=== PATIENT | female | born 1970 | race African-American/Black ===

== ENCOUNTER 2018-02-28 15:01 | Emergency (ER) | payer BC ==
[~2018-02-28] VITALS: Ht 160 cm; Wt 83.0 kg
[2018-02-28 15:21] VITALS: BP 187/88; PULSE 99; RESP 22; TEMP 99.2; O2SAT 99
[2018-02-28] MEDS ORDERED: MONT10TA2 PO (15:37)
[2018-02-28] MEDS ORDERED: LISI-515 PO (15:37)
--- NOTE | 2018-02-28 15:56 | PD ---
HPI Chief Complaint: Abdominal Pain Time Seen by Provider: 15:28 Travel History International Travel<30 days: No Contact w/Intl Traveler<30days: No Traveled to known affect area: No History of Present Illness HPI Patient 47-year-old female presents emergency department with intermittent epigastric pain over the past days. States feeling kind of cramping and just like something is moving inside of her abdomen. States she was speaking with some of her coworkers and they told her she should come in and be seen. She has a history of partial hysterectomy but is concerned that maybe she was having a gallbladder flare. She cannot elicit factors. Denies any chest pain shortness of breath. She states her symptoms are fairly mild currently. No vaginal bleeding vaginal discharge dysuria vomiting constipation diarrhea blood in stool PFSH Past Medical History Medical History: Denies Significant Hx Asthma: Yes Diminished Hearing: No Hypertension: Yes ?: Not Past Surgical History Section: Yes (X1) Hysterectomy: Yes (PARTIAL) Social History Alcohol Use: No Tobacco Use: No Allergies-Medications (Allergen,Severity, Reaction): Coded Allergies: Penicillins (Verified Allergy, Intermediate, ITCHING, 02/28/18) Reported Meds & Prescriptions Reported Meds & Active Scripts Active Pepcid (Famotidine) 20 Mg Tab 20 Mg PO BID Bentyl (Dicyclomine HCl) 10 Mg Cap 10 Mg PO TID PRN 20 Days Reported Lisinopril 20 Mg Tab 20 Mg PO DAILY Singulair (Montelukast Sodium) 10 Mg Tab 10 Mg PO HS Review of Systems Except as stated in HPI: all other systems reviewed are Neg Physical Exam Narrative GENERAL: Well-developed well-nourished -[place] overweight female in no obvious distress. SKIN: Focused skin assessment warm/dry. HEAD: Atraumatic. Normocephalic. EYES: Pupils equal and round. No scleral icterus. No injection or drainage. ENT: No nasal bleeding or discharge. Mucous membranes pink and moist. NECK: Trachea midline. No JVD. CARDIOVASCULAR: Regular rate and rhythm. No murmur appreciated. RESPIRATORY: No accessory muscle use. Clear to auscultation. Breath sounds equal bilaterally. GASTROINTESTINAL: Abdomen soft, non-tender, nondistended. Hepatic and splenic margins not palpable. No rebound no percussive tenderness, Varner psoas obturator signs and Rovsing sign negative. No mass felt. No hepatosplenomegaly peer no CVA tenderness. MUSCULOSKELETAL: No obvious deformities. No clubbing. No cyanosis. No edema. NEUROLOGICAL: Awake and alert. No obvious cranial nerve deficits. Motor grossly within normal limits. Normal speech. PSYCHIATRIC: Appropriate mood and affect; insight and judgment normal. Data Data Last Documented VS Vital Signs Date Time Temp Pulse Resp B/P (MAP) Pulse Ox O2 Delivery O2 Flow Rate FiO2 02/28/18 15:21 99.2 99 22 187/88 (121) 99 Orders Orders Complete Blood Count With Diff (02/28/18 15:54) Comprehensive Metabolic Panel (02/28/18 15:54) Lipase (02/28/18 15:54) Iv Access Insert/Monitor (02/28/18 15:54) Ecg Monitoring (02/28/18 15:54) Oximetry (02/28/18 15:54) Sodium Chloride 0.9% Flush (Ns Flush) (02/28/18 16:00) Dicyclomine (Bentyl) (02/28/18 16:00) Ketorolac Inj (Toradol Inj) (02/28/18 16:00) Ed Discharge Order (02/28/18 17:09) Electrocardiogram (02/28/18 17:36) Labs Laboratory Tests Test 02/28/18 16:30 White Blood Count 12.4 TH/MM3 Red Blood Count 4.44 MIL/MM3 Hemoglobin 11.6 GM/DL Hematocrit 35.1 % Mean Corpuscular Volume 79.1 FL Mean Corpuscular Hemoglobin 26.1 PG Mean Corpuscular Hemoglobin Concent 33.1 % Red Cell Distribution Width 14.1 % Platelet Count 354 TH/MM3 Mean Platelet Volume 8.4 FL Neutrophils (%) (Auto) 62.9 % Lymphocytes (%) (Auto) 30.1 % Monocytes (%) (Auto) 5.6 % Eosinophils (%) (Auto) 1.1 % Basophils (%) (Auto) 0.3 % Neutrophils # (Auto) 7.8 TH/MM3 Lymphocytes # (Auto) 3.7 TH/MM3 Monocytes # (Auto) 0.7 TH/MM3 Eosinophils # (Auto) 0.1 TH/MM3 Basophils # (Auto) 0.0 TH/MM3 CBC Comment DIFF FINAL Differential Comment Blood Urea Nitrogen 12 MG/DL Creatinine 0.89 MG/DL Random Glucose 94 MG/DL Total Protein 7.0 GM/DL Albumin 3.4 GM/DL Calcium Level 8.6 MG/DL Alkaline Phosphatase 86 U/L Aspartate Amino Transf (AST/SGOT) 17 U/L Alanine Aminotransferase (ALT/SGPT) 18 U/L Total Bilirubin 0.3 MG/DL Sodium Level 142 MEQ/L Potassium Level 3.6 MEQ/L Chloride Level 107 MEQ/L Carbon Dioxide Level 26.2 MEQ/L Anion Gap 9 MEQ/L Estimat Glomerular Filtration Rate 83 ML/MIN Lipase 77 U/L [facility] Medical Decision Making Medical Screen Exam Complete: Yes Emergency Medical Condition: Yes Differential Diagnosis Pancreatitis unlikely, gastritis, gastroenteritis, peptic ulcer disease, cholecystitis unlikely, appendicitis unlikely. Narrative Course Patient room to the emergency department, she appears well in no obvious distress. Her labs are returned and lipase LFTs creatinine electrolytes and CBC are unremarkable. On my revisit she has not yet received the medication I have ordered for her but her abdomen is benign and she is sleeping soundly. We discussed the possibility of CAT scan of her abdomen but this time I think the risks of radiation exposure outweigh the pretest probability. I discussed symptomatic management bland diet follow-up with a primary care physician. Discussed at length return to ED criteria. At this time she stable for discharge. We also discussed the possibility that there may be some esophagitis or peptic ulcer disease leading to her symptoms peer Diagnosis Primary Impression: Epigastric abdominal pain Referrals: Mike Veronica MD Med/Other Pt SpecificInfo: Prescription(s) given Scripts Famotidine (Pepcid) 20 Mg Tab 20 MG PO BID, #60 TAB 0 Refills Prov: Ernesto Muhammad MD 02/28/18 Dicyclomine (Bentyl) 10 Mg Cap 10 MG PO TID Y for ABDOMINAL CRAMPING for 20 Days, CAP 0 Refills Prov: Ernesto Muhammad MD 02/28/18 Disposition: 01 DISCHARGE HOME Condition: Stable Ernesto Muhammad MD February 28, 2018 15:56
[2018-02-28] MEDS ORDERED: DICYCLOMINE HCL 10 MG CAP PO ONE (16:00)
[2018-02-28] MEDS ORDERED: KETOROLAC TROMETHAMINE 30 MG/ML (IVP) VIAL IVP ONE (16:00)
[2018-02-28] MEDS ORDERED: SODIUM CHLORIDE 0.9% FLUSH 10 ML FLUSH IV FLUSH PRN (16:00)
[2018-02-28 16:55] LABS: ALBUMIN 3.4 GM/DL (3.4-5.0); AST (GOT) 17 U/L (15-37); BICARBONATE 26.2 MEQ/L (21.0-32.0); BLOOD UREA NITROGEN 12 MG/DL (7-18); CALCIUM 8.6 MG/DL (8.5-10.1); CHLORIDE 107 MEQ/L (98-107); CREATININE 0.89 MG/DL (0.50-1.00); GLOMERULAR FILTRATION RATE 83 ML/MIN (>89); GLUCOSE,RANDOM 94 MG/DL (74-106); SODIUM (NA) 142 MEQ/L (136-145)
[2018-02-28 16:57] LABS: ALT (GPT) 18 U/L (10-53)
[2018-02-28 16:59] LABS: ALKALINE PHOSPHATASE 86 U/L (45-117); TOTAL BILIRUBIN ADULT 0.3 MG/DL (0.2-1.0)
[2018-02-28 17:00] LABS: AUTOMATED NEUTROPHIL # 7.8 TH/MM3 (1.8-7.7); BASOPHIL % 0.3 % (0.0-2.0); EOSINOPHIL # 0.1 TH/MM3 (0-0.4); EOSINOPHIL % 1.1 % (0.0-4.0); HEMATOCRIT 35.1 % (35.0-46.0); HEMOGLOBIN 11.6 GM/DL (11.6-15.3); LYMPH % 30.1 % (9.0-44.0); LYMPHOCYTE # 3.7 TH/MM3 (1.0-4.8); MEAN CELL VOLUME 79.1 FL (80.0-100.0); MEAN CORPUSCULAR HEMOGLOBIN 26.1 PG (27.0-34.0); MEAN CORPUSCULAR HGB CONC 33.1 % (32.0-36.0); MEAN PLATELET VOLUME 8.4 FL (7.0-11.0); MONO % 5.6 % (0.0-8.0); MONOCYTE # 0.7 TH/MM3 (0-0.9); NEUT % 62.9 % (16.0-70.0); PLATELET COUNT 354 TH/MM3 (150-450); RED BLOOD COUNT 4.44 MIL/MM3 (4.00-5.30); RED CELL DISTRIBUTION WIDTH 14.1 % (11.6-17.2); WHITE BLOOD COUNT 12.4 TH/MM3 (4.0-11.0)
[2018-02-28] MEDS ORDERED: DICY10 PO (17:09)
[2018-02-28] MEDS ORDERED: FAMO1TAB37 PO (17:09)
--- NOTE | 2018-03-01 18:02 | EKG ---
Date Performed: 02/28/2018 Time Performed: 17:36:46 PTAGE: 47 years EKG: Sinus rhythm NORMAL ECG NO PREVIOUS TRACING DOCTOR: Erna Jacobo Interpretating Date/Time 03/06/2018 08:34:24
== END 2018-02-28 17:45 | disposition home or self-care (01) ==
LOC: NEPD 15:01
DX: R10.13 Epigastric pain (principal); J45.909 Unspecified asthma, uncomplicated; I10 Essential (primary) hypertension; Z88.0 Allergy status to penicillin; Z79.899 Other long term (current) drug therapy
CPT/HCPCS: 80053; 83690; 85025; 93005; 96374; 99284; J1885